=== PATIENT | female | born 1965 | race Hispanic/Latino ===

== ENCOUNTER 2018-11-13 05:17 | Emergency (ER) | payer OTHER, SELFPAY ==
[2018-11-13] MEDS ORDERED: Guaifenesin DM 100-10/5 ML UDCUP ONE (05:57)
== END 2018-11-13 06:15 | disposition home or self-care (01) ==
LOC: NAV ERS 05:17
DX: J20.9 Acute bronchitis, unspecified (principal); B34.9 Viral infection, unspecified; Z79.899 Other long term (current) drug therapy; I10 Essential (primary) hypertension
CPT/HCPCS: 93005